=== PATIENT | female | born 1965 | race African-American/Black ===

== ENCOUNTER 2018-03-02 08:37 | Emergency (ER) | payer SELFPAY ==
[~2018-03-02] VITALS: Ht 162.6 cm; Wt 108.9 kg
[~2018-03-02 08:37] MED LIST: LISI-334 PO
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
[2018-03-02] MEDS ORDERED: ACETAMINOPHEN 500 MG TABLET PO ONE (09:00)
[2018-03-02] MEDS ORDERED: diazePAM 5 MG TABLET PO ONE (09:00)
[2018-03-02 09:45] VITALS: BP 108/60
[2018-03-02] MEDS ORDERED: DIAZ5TAB PO (09:58)
== END 2018-03-02 10:13 | disposition home or self-care (01) ==
LOC: ER 08:37
DX: R51 Headache (principal); I10 Essential (primary) hypertension
CPT/HCPCS: 99283

== ENCOUNTER 2021-02-27 10:10 | Emergency (ER) | payer SELFPAY ==
[~2021-02-27] VITALS: Ht 162.6 cm; Wt 108.3 kg
[~2021-02-27 10:10] MED LIST changes: +DIAZ5TAB PO; -LISI-334 PO; +LISI20TA18 PO
[2021-02-27 10:55] VITALS: BP 123/85
--- NOTE | 2021-02-27 11:46 | PHYS DOC ---
Past Medical History Past Medical History: High Cholesterol, Hypertension (SRAVAN HARRIS APRN) Past Surgical History: Other Additional Past Surgical Histo: R breast biopsy (SRAVAN HARRIS OXYACETYLENE WELDER) Smoking Status: Never Smoker Alcohol Use: None Drug Use: None (SRAVAN HARRIS APRN) General Adult EDM: Chief Complaint: COUGH HPI: HPI: Patient is a 55 year old female who presents with states that on February 16 she had a really bad cold with a cough and body aches and chills. She states that she does drink orange juice and took supplements. She states she was not checked for Covid. She states she is not vaccinated. She states she is here because she has a continued cough but everything else has resolved. She denies chest pain, shortness of breath, fever, nausea, vomiting, diarrhea, abdominal pain, numbness or tingling, focal weakness. Patient has a history of hypertension, high cholesterol, right breast biopsy. (SRAVAN HARRIS OXYACETYLENE WELDER) Review of Systems: Review of Systems: Constitutional: Denies fever or chills. [] Eyes: Denies change in visual acuity. [] HENT: Denies nasal congestion or sore throat. [] Respiratory: Denies cough or shortness of breath. [] Cardiovascular: Denies chest pain or edema. [] GI: Denies abdominal pain, nausea, vomiting, bloody stools or diarrhea. [] : Denies dysuria. [] Musculoskeletal: Denies back pain or joint pain. [] Integument: Denies rash. [] Neurologic: Denies headache, focal weakness or sensory changes. [] Endocrine: Denies polyuria or polydipsia. [] Lymphatic: Denies swollen glands. [] Psychiatric: Denies depression or anxiety. [] (SRAVAN HARRSI OXYACETYLENE WELDER) Heart Score: C/O Chest Pain: No Risk Factors: Risk Factors: DM, Current or recent (<one month) smoker, HTN, HLP, family history of CAD, obesity. Risk Scores: Score 0 - 3: 2.5% MACE over next 6 weeks - Discharge Home Score 4 - 6: 20.3% MACE over next 6 weeks - Admit for Clinical Observation Score 7 - 10: 72.7% MACE over next 6 weeks - Early Invasive Strategies (SRAVAN HARRIS OXYACETYLENE WELDER) Allergies: Allergies: Allergies Coded Allergies Type Severity Reaction Last Updated Verified No Known Drug Intolerances Allergy Unknown 02/14/14 No (SRAVAN HARRIS APRN) Physical Exam: PE: Constitutional: Well developed, well nourished, no acute distress, non-toxic appearance. [] HENT: Normocephalic, atraumatic, bilateral external ears normal, oropharynx moist, no oral exudates, nose normal. [] Eyes: PERRLA, EOMI, conjunctiva normal, no discharge. [] Neck: Normal range of motion, no tenderness, supple, no stridor. [] Cardiovascular:Heart rate regular rhythm, no murmur [] Lungs & Thorax: Bilateral breath sounds clear to auscultation [] Abdomen: Bowel sounds normal, soft, no tenderness, no masses, no pulsatile masses. [] Skin: Warm, dry, no erythema, no rash. [] Back: No tenderness, no CVA tenderness. [] Extremities: No tenderness, no cyanosis, no clubbing, ROM intact, no edema. [] Neurologic: Alert and oriented X 3, normal motor function, normal sensory function, no focal deficits noted. [] Psychologic: Affect normal, judgement normal, mood normal. [] (SRAVAN HARRIS APRN) Current Patient Data: Vital Signs: Vital Signs Date Time Temp Pulse Resp B/P (MAP) Pulse Ox O2 Delivery O2 Flow Rate FiO2 02/27/21 10:55 98.8 61 18 123/85 (105) 97 Room Air 98.8 (SRAVAN HARRIS APRN) EKG: EKG: [] (SRAVAN HARRIS APRN) Radiology/Procedures: Radiology/Procedures: [] Impression: [facility] [address] [place], [place] [id number] IMAGING REPORT Signed PATIENT: MONALISA VERA ACCOUNT: [id number] : 1965 LOCATION: ER AGE: 55 SEX: F EXAM STATUS: REG ER ORD. PHYSICIAN: SRAVAN HARRIS APRN REASON: cough PROCEDURE: PORTABLE CHEST 1V EXAM: Chest, single view. HISTORY: Cough. COMPARISON: None. FINDINGS: A frontal view of the chest is obtained. There is bilateral perihilar and infrahilar or interstitial infiltrate. There is no pleural effusion or pneumothorax. The heart is normal in size for portable technique. IMPRESSION: Bilateral perihilar and infrahilar interstitial infiltrate. Electronically signed by: Cherise Friedman MD (02/27/2021 11:45 AM) [id number] DICTATED and SIGNED BY: CHERISE FRIEDMAN MD DATE: 02/27/21 [id number] (SRAVAN HARRIS APRN) Course & Med Decision Making: Course & Med Decision Making Pertinent Labs and Imaging studies reviewed. (See chart for details) COVID-19 CRITERIA: The patient was evaluated during the global COVID-19 pandemic, and that diagnosis was suspected/considered upon their initial presentation. Their evaluation, treatment and testing was consistent with current guidelines for patients who present with complaints or symptoms that may be related to COVID-19. See HPI. Patient refused Covid test. Lungs are clear all station all lobes. Vital signs within normal limits. Afebrile. Speaks in full clear sentences. Skin pink warm and dry. Chest x-ray shows pneumonia. No respiratory distress. No accessory muscle use. Vital signs are all within normal limits. She is not hypoxic. [] (SRAVAN HARRIS APRN) Course & Med Decision Making I have reviewed and agree with all pertinent clinical information above including history, exam, and recommendations. Rocky Amador DO (ROCKY AMADOR DO) Cassia Disclaimer: Cassia Disclaimer: This electronic medical record was generated, in whole or in part, using a voice recognition dictation system. (SRAVAN HARRIS APRN) COVID-19 Patient Risks: Age 65 or older: No Sign of co-morbidity: Yes Exp to person + for COVID: No Exp to PUI: No Travel from affected area: No Lower respiratory symptoms: Yes Fever: No Other: No (SRAVAN HARRIS APRN) PPE Use: Full PPE with N95 mask or PAPR: Yes (SRAVAN HARRIS APRN) Departure Departure Impression: Primary Impression: Pneumonia Qualified Codes: J18.9 - Pneumonia, unspecified organism Additional Impression: Person under investigation for COVID-19 Disposition: 01 HOME / SELF CARE / HOMELESS Condition: STABLE Referrals: ELIZABETH ARCHULETA JR, MD (PCP) Patient Instructions: Pneumonia, Adult Additional Instructions: Follow-up with primary care provider. Take medication as prescribed and with food. Plenty of fluids. Take Tylenol or ibuprofen for any pain you may have. Scripts Benzonatate (TESSALON PERLE) 100 Mg Capsule 1 CAP PO TID, #30 CAP Prov: SRAVAN HARRIS APRN 02/27/21 Albuterol Sulfate (PROAIR HFA INHALER) 8.5 Gm Hfa.aer.ad 1 PUFF INH PRN Q6HRS PRN for SHORTNESS OF BREATH, #1 EACH 0 Refills Prov: SRAVAN HARRIS APRN 02/27/21 Methylprednisolone (MEDROL) 4 Mg Tab.ds.pk 1 PKG PO UD, #1 PKG Prov: SRAVAN HARRIS APRN 02/27/21 Azithromycin (AZITHROMYCIN TABLET) 250 Mg Tablet 1 PKG PO UD for 5 Days, #6 TAB 0 Refills 2 the first day followed by 1 for days 2-5 Prov: SRAVAN HARRIS APRN 02/27/21 SRAVAN HARRIS APRN Feb 27, 2021 11:46 ROCKY AMADOR DO Feb 27, 2021 18:15
--- NOTE | 2021-02-27 11:47 | RAD ---
EXAM: Chest, single view. HISTORY: Cough. COMPARISON: None. FINDINGS: A frontal view of the chest is obtained. There is bilateral perihilar and infrahilar or int erstitial infiltrate. There is no pleural effusion or pneumothorax. The heart is normal in size for p ortable technique. IMPRESSION: Bilateral perihilar and infrahilar interstitial infiltrate. Electronically signed by: Cherise Angulo MD (02/27/2021 11:45 AM) [id number]
[2021-02-27] MEDS ORDERED: BENZ100C PO (11:56)
[2021-02-27] MEDS ORDERED: ALBU2.5V8 INH (11:56)
[2021-02-27] MEDS ORDERED: METH4TAB2 PO (11:56)
[2021-02-27] MEDS ORDERED: AZIT250T6 PO (11:56)
== END 2021-02-27 12:06 | disposition home or self-care (01) ==
LOC: ER 10:10
DX: J18.9 Pneumonia, unspecified organism (principal); E78.00 Pure hypercholesterolemia, unspecified; I10 Essential (primary) hypertension
CPT/HCPCS: 71045; 99283